=== PATIENT | male | born 1965 | race Caucasian/White ===

== ENCOUNTER 2016-12-05 08:27 | Inpatient (IN) | payer OTHER ==
[2016-12-05 08:33] VITALS: BMI 31.6
[2016-12-05] MEDS ORDERED: NITRO-BID OINT 2% Multi-Dose tube TD ONE (08:59)
[2016-12-05] MEDS ORDERED: MORPHINE SULFATE INJ 4 MG IVP ONE ×2 (08:59→13:06)
--- NOTE | 2016-12-05 09:02 | DR.GENAD ---
HPI - PCP Primary Care Physician: GRANT VÁSQUEZ - Complaint/Symptoms Chief Complaint Doctors Comments: Chest pain( midsternal) Chief Complaint:: BAD HEADACHE, N/V, CHEST PAIN SINCE YESTERDAY MORNING. - Nurses notes reviewed Nurses Notes Review: Yes - Source History Provided: Patient - Mode of Arrival Mode of Arrival: Ambulatory - Timing Onset of Chief Complaint: 12/04/16 Came on: Gradually - Duration Duration: Constant How lon Duration: Hours - Location Location: midsternal - Severity Severity: Severe - Associated Signs and Symptoms Associated Signs and Symptoms: nausea and vomiting PMH - PMH Past Medical History: Yes Past Medical History: Hypertension Past Medical History Comment: AAA, T-AROTIC DIC Past Surgical History: Yes Surgical History: AAA Repair, Appendectomy, CABG/Valve Surgery, Ortho Surgery Past Surgical History Comment: HERNIA REPAIR - Family History History of Family Medical Conditions: Yes Family Medical History: Heart Failure, Hypertension - Social History Does patient currently use any type of tobacco product: Yes Have you used tobacco products in the last 12 months: Yes Type of Tobacco Use: Cigarettes Does any household member use tobacco: No Alcohol Use: None Do you use any recreational Drugs:: No Lives With: Family Lives Where: Home - infectious screening In the last 2 months have you had wt loss of >10#?: NO Have you had fever, night sweats or hemotysis?: No Have you traveled outside the country in the last 6 months?: No Isolation: Standard ROS - Review of Systems Constitutional: No Symptoms Reported Eyes: No Symptoms Reported ENTM: No Symptoms Reported Respiratoy: No Symptoms Reported Cardiovascular: Chest Pain Gastrointestinal/Abdominal: Vomiting Genitourinary: No Symptoms Reported Neurological: No Symptoms Reported Musculoskeletal: No Symptoms Reported Integumentary: No Symptoms Reported Hematologic/Lymphatic: No Symptoms Reported Endocrine: No Symptoms Reported Psychiatric: No Symptoms Reported All Other Systems: Reviewed and Negative PE - Vital Signs Vitals: Temperature 98.8 F Pulse Rate [Right Brachial] 66 Pulse Rate 92 Respiratory Rate 17 Blood Pressure [Right Arm] 148/88 Blood Pressure 223/150 O2 Sat by Pulse Oximetry 96 - General Limitations: No Limitations General Appearance: Alert, In No Apparent Distress - Head Head Exam: Normal Inspection - Eyes Eye exam: Normal Appearance - ENT Nose Exam: Normal Nose Exam Mouth Exam: Normal Inspection Throat Exam: Normal Inspection - Neck Neck Exam: Normal Inspection - Chest Chest Inspection: Normal Inspection - Respiratory Respiratory Exam: Normal Lung Sounds Bilat Respiratory Exam: Bilateral Clear to Auscultation - Cardiovascular Cardiovascular Exam: Regular Rate, Normal Rhythm, Normal Heart Sounds - Abdominal Exam Abdominal Exam: Normal Inspection, Normal Bowel Sounds, Soft - Extremities Extremities Exam: Normal Inspection - Back Back Exam: Normal Inspection - Neurologic Neurological Exam: Alert, Oriented X3, CN II-XII Intact - Psychiatric Psychiatric Exam: Normal Affect - Skin Skin Exam: Warm, Dry, Intact, Normal Color ROR - Labs Reviewed Result Diagrams: 12/05/16 08:46 12/05/16 08:46 Laboratory: WBC 9.7 X10^3/uL (3.6-10.0) 12/05/16 08:46 RBC 6.09 X10^6/uL (4.7-6.0) H 12/05/16 08:46 Hgb 16.8 g/dL (13.5-18.0) 12/05/16 08:46 Hct 47.9 % (42.0-54.0) 12/05/16 08:46 MCV 78.6 fL (80.0-100.0) L 12/05/16 08:46 MCH 27.6 pg (27.0-34.0) 12/05/16 08:46 MCHC 35.2 g/dL (33.0-35.0) H 12/05/16 08:46 RDW 15.5 % (11.6-16.5) 12/05/16 08:46 Plt Count 133 X10^3/uL (150.0-450.0) L 12/05/16 08:46 MPV 8.1 fL (7.4-11.0) 12/05/16 08:46 Neut % 69.6 % (42.0-75.0) 12/05/16 08:46 Lymph % 18.6 % (21.0-51.0) L 12/05/16 08:46 [place] % 8.9 % (0.0-13.0) 12/05/16 08:46 Eos % 1.8 % (0.9-2.9) 12/05/16 08:46 Baso % 1.1 % (0.2-1.0) H 12/05/16 08:46 Neut # 6.7 x10^3/uL (2.2-4.8) H 12/05/16 08:46 Lymph # 1.8 X10^3/uL (1.3-2.9) 12/05/16 08:46 [place] # 0.9 x10^3/uL (0.3-0.8) H 12/05/16 08:46 Eos # 0.2 x10^3/uL (0.0-0.2) 12/05/16 08:46 Baso # 0.1 X10^3/uL (0.0-0.1) 12/05/16 08:46 Absolute Nucleated RBC 0.4 /100WBC 12/05/16 08:46 Sodium 141 mmol/L (136-145) 12/05/16 08:46 Corrected Sodium TNP 12/05/16 08:46 Potassium 3.7 mmol/L (3.5-5.1) 12/05/16 08:46 Chloride 103 mmol/L (98-107) 12/05/16 08:46 Carbon Dioxide 28.1 mmol/L (21-32) 12/05/16 08:46 BUN 14 mg/dL (7-18) 12/05/16 08:46 Creatinine 1.51 mg/dL (0.70-1.30) H 12/05/16 08:46 Est GFR (MDRD) Af Amer > 60 (>60) 12/05/16 08:46 Est GFR (MDRD) Non-Af 52 (>60) L 12/05/16 08:46 Glucose 98 mg/dL (65-99) 12/05/16 08:46 Calcium 9.1 mg/dL (8.5-10.1) 12/05/16 08:46 Corrected Calcium TNP 12/05/16 08:46 Total Bilirubin 1.00 mg/dL (0.2-1.0) 12/05/16 08:46 AST 37 Units/L (15-37) 12/05/16 08:46 ALT 57 Units/L (12-78) 12/05/16 08:46 Alkaline Phosphatase 70 Units/L (46-116) 12/05/16 08:46 Creatine Kinase 42 Units/L (39-308) 12/05/16 08:46 CK-MB (CK-2) < 1.0 ng/mL (0-4.0) 12/05/16 08:46 CK/CKMB % Calc 2.4 % (<4) 12/05/16 08:46 Troponin I < 0.02 ng/mL (0-1.5) 12/05/16 08:46 B-Natriuretic Peptide 98.3 pg/mL (0-79) H 12/05/16 08:46 Total Protein 8.3 g/dL (6.4-8.2) H 12/05/16 08:46 Albumin 3.6 g/dL (3.4-5.0) 12/05/16 08:46 Globulin 4.7 g/dL (2.5-4.5) H 12/05/16 08:46 Albumin/Globulin Ratio 0.8 Ratio (1.1-2.1) L 12/05/16 08:46 - Discharge Plan Disposition: ADMITTED INPATIENT Condition: Fair - Follow ups/Referrals Follow ups/Referrals: GRANT VÁSQUEZ [Primary Care Provider] - 3 days - Instructions
[2016-12-05] MEDS ORDERED: MORPHINE SULFATE INJ 4 MG ONE ×2 (09:03→13:01)
[2016-12-05 09:04] LABS: BASOPHILS # (AUTO) 0.1 X10^3/uL (0.0-0.1); BASOPHILS % (AUTO) 1.1 % (0.2-1.0); EOSINOPHILS # (AUTO) 0.2 x10^3/uL (0.0-0.2); EOSINOPHILS % (AUTO) 1.8 % (0.9-2.9); HEMATOCRIT 47.9 % (42.0-54.0); HEMOGLOBIN 16.8 g/dL (13.5-18.0); LYMPHOCYTES # (AUTO) 1.8 X10^3/uL (1.3-2.9); LYMPHOCYTES % (AUTO) 18.6 % (21.0-51.0); MEAN CORPUSCULAR HEMOGLOBIN 27.6 pg (27.0-34.0); MEAN CORPUSCULAR HGB CONC 35.2 g/dL (33.0-35.0); MEAN CORPUSCULAR VOLUME 78.6 fL (80.0-100.0); MEAN PLATELET VOLUME 8.1 fL (7.4-11.0); MONOCYTES # (AUTO) 0.9 x10^3/uL (0.3-0.8); MONOCYTES % (AUTO) 8.9 % (0.0-13.0); NEUTROPHILS # (AUTO) 6.7 x10^3/uL (2.2-4.8); NEUTROPHILS % (AUTO) 69.6 % (42.0-75.0); PLATELET COUNT 133 X10^3/uL (150.0-450.0); RED BLOOD COUNT 6.09 X10^6/uL (4.7-6.0); RED CELL DISTRIBUTION WIDTH 15.5 % (11.6-16.5); WHITE BLOOD COUNT 9.7 X10^3/uL (3.6-10.0)
[2016-12-05] MEDS: NITROSTAT SL PRN ×2 (09:08→09:14)
[2016-12-05 09:16] LABS: BLOOD UREA NITROGEN 14 mg/dL (7-18); CALCIUM 9.1 mg/dL (8.5-10.1); CARBON DIOXIDE 28.1 mmol/L (21-32); CHLORIDE 103 mmol/L (98-107); CREATININE 1.51 mg/dL (0.70-1.30); GLUCOSE 98 mg/dL (65-99); SODIUM 141 mmol/L (136-145); TROPONIN I < 0.02 ng/mL (0-1.5); eGFR BLACK RACES > 60 (>60); eGFR NON BLACK RACES 52 (>60)
[2016-12-05 09:20] LABS: ALANINE AMINOTRANSFERASE 57 Units/L (12-78); ALBUMIN 3.6 g/dL (3.4-5.0); ALKALINE PHOSPHATASE 70 Units/L (46-116); ASPARTATE AMINO TRANSFERASE 37 Units/L (15-37); CKMB % 2.4 % (<4); CREATINE KINASE 42 Units/L (39-308); CREATINE KINASE MB < 1.0 ng/mL (0-4.0); TOTAL PROTEIN 8.3 g/dL (6.4-8.2)
[2016-12-05] MEDS ORDERED: NITRO-BID OINT 2% Multi-Dose tube ONE (09:20)
[2016-12-05 09:21] LABS: B-TYPE NATRIURETIC PEPTIDE 98.3 pg/mL (0-79)
--- NOTE | 2016-12-05 09:43 | RAD ---
HISTORY: Chest pain Study: Chest one view Comparison: None Findings: The patient is status post median sternotomy and CABG. The heart is within normal limits in size. No congestive heart failure is noted. The aortic arch appears dilated. This could be better evaluated with chest CT with contrast. The lungs are hyperinflated. Emphysematous changes are present in the u pper lobes. Interstitial lung changes are present in the lower lobes. IMPRESSION: Dilated aortic arch possibly aneurysmal. Further evaluation with chest CT with contrast is recommend ed particularly if the patient is having chest pain. Emphysematous COPD with interstitial lung disease Reported By:
[2016-12-05] MEDS ORDERED: ZOFRAN INJ 4 MG VIAL IVP ONE (09:57)
[2016-12-05] MEDS ORDERED: NORMODYNE INJ 20 MG VIAL ONE ×2 (10:00→10:34)
[2016-12-05] MEDS ORDERED: NORMODYNE INJ 20 MG VIAL IVP ONE ×3 (10:00→13:02)
[2016-12-05] MEDS ORDERED: ZOFRAN INJ 4 MG VIAL ONE (10:00)
[2016-12-05] MEDS ORDERED: NORMODYNE INJ 100 MG VIAL IVP ONE (10:24)
[2016-12-05] MEDS ORDERED: NS 100 ML IV 100 ML IV ONE (11:05)
--- NOTE | 2016-12-05 12:24 | CT ---
HISTORY: History of thoracic aneurysm repair, abdominal aortic aneurysm, chest pain, vomiting Study: CT chest abdomen and pelvis with contrast Comparison: Prior CT report from 11/12/2016 was reviewed Technique: Multiple axial images of the chest, abdomen, and pelvis were obtained after the administr ation of IV contrast. Dose reduction techniques including Automated Exposure Control (AEC) and adju stment of mA and kV were utilized. CT chest findings: Sternotomy changes are noted. There are postsurgical changes of the ascending aorta with a single ve ssel arising from the ascending portion that gives rise to the brachiocephalic, bilateral common car otid arteries, and left subclavian artery. There is aneurysmal dilation of the aortic arch and desce nding thoracic aorta up to 5 cm with a type B dissection present. There are 2 patent channels within the descending thoracic aorta, with the smaller channel being anterior. The posterior channel as la rger with eccentric mural thrombus present. Chronic emphysematous changes are present in the lungs. No acute infiltrate. No pneumothorax or pleu ral effusion. Normal-sized heart. No pericardial effusion. The airways are clear. CT abdomen and pelvis findings: The liver, pancreas, kidneys and adrenal glands are within normal limits. There is heterogeneous enh ancement of the spleen with focal areas of hypoattenuation at the upper pole. The gallbladder is unr emarkable. No calcified gallstones are seen. No renal calculi or obstructive uropathy. Above-described type B dissection is seen in the upper abdomen. There is a stent noted within the sm aller anterior lumen. This smaller lumen feeds the SMA and celiac trunk although this stent appears to cover the origin of the celiac trunk. There are 2 left renal arteries present and the smaller lum en also feeds the more anterior of the 2 renal arteries. The larger more posterior left renal artery and the single right renal artery are fed by the posterior lumen. The smaller lumen becomes slit-li ke inferiorly into the bifurcation and gives rise to the SANCHEZ. The dissection extends into the bifurc ation and into the left common iliac artery and there is a stent within the smaller anterior lumen o f the left common iliac artery and circumferential mural plaque seen within the larger more posterio r lumen that gives rise to the hypogastric artery. The left external iliac artery is tortuous but wi linda patent. The right external iliac artery and bilateral common femoral arteries appear normal. No free intraperitoneal air. No evidence of intestinal obstruction or inflammation. The appendix is not visualized. No free fluid identified. The soft tissues and osseous structures are unremarkable. No pathologically enlarged lymph nodes are identified. There is urinary bladder wall thickening seen. Along the right posterior bladder wall n ear the right UVJ there is a partially calcified mural nodule measuring up to 1 cm of uncertain etio logy. IMPRESSION CHEST: 1. 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 2. Chronic emphysematous changes. IMPRESSION ABDOMEN/PELVIS: 1. Postsurgical changes of the abdominal aorta and left common iliac artery related to the type B di ssection as detailed above. The smaller anterior channel is stented at the level of the celiac trunk and SMA and appears slit like below the level of the renal arteries and is also stented at the bifu rcation extending into the left common iliac artery. 2. 1 cm partially calcified mural nodule within the urinary bladder near the right UVJ. Cannot excl ude a bladder mass. Urologic followup is recommended. 3. Heterogeneous enhancement of the spleen that is likely related to contrast timing. Less likely wo uld be a splenic contusion or laceration, correlate clinically. Reported By:
[2016-12-05] MEDS ORDERED: NORMODYNE INJ 20 MG VIAL IV PRN (13:54)
[2016-12-05 14:44] LABS: CKMB % 2.8 % (<4); CREATINE KINASE 36 Units/L (39-308); CREATINE KINASE MB < 1.0 ng/mL (0-4.0); TROPONIN I < 0.02 ng/mL (0-1.5)
[2016-12-05] MEDS ORDERED: OXYCODONE HCL PO PRN (15:49)
[2016-12-05 20:22] LABS: CKMB % 2.4 % (<4); CREATINE KINASE 42 Units/L (39-308); CREATINE KINASE MB < 1.0 ng/mL (0-4.0); TROPONIN I < 0.02 ng/mL (0-1.5)
[2016-12-05] MEDS ORDERED: ZESTRIL TAB 20 MG ONE (21:52)
[2016-12-05] MEDS: ZESTRIL TAB 20 MG PO SCH (21:53)
[2016-12-05] MEDS: M.S. CONTIN 15 MG (EXTENDED RELEASE) PO SCH (21:53)
[2016-12-06 02:48] LABS: BASOPHILS # (AUTO) 0.1 X10^3/uL (0.0-0.1); BASOPHILS % (AUTO) 0.8 % (0.2-1.0); EOSINOPHILS # (AUTO) 0.3 x10^3/uL (0.0-0.2); EOSINOPHILS % (AUTO) 2.8 % (0.9-2.9); HEMATOCRIT 41.4 % (42.0-54.0); HEMOGLOBIN 14.3 g/dL (13.5-18.0); LYMPHOCYTES # (AUTO) 1.6 X10^3/uL (1.3-2.9); LYMPHOCYTES % (AUTO) 17.3 % (21.0-51.0); MEAN CORPUSCULAR HEMOGLOBIN 27.5 pg (27.0-34.0); MEAN CORPUSCULAR HGB CONC 34.4 g/dL (33.0-35.0); MEAN CORPUSCULAR VOLUME 79.8 fL (80.0-100.0); MEAN PLATELET VOLUME 8.3 fL (7.4-11.0); MONOCYTES # (AUTO) 0.9 x10^3/uL (0.3-0.8); NEUTROPHILS # (AUTO) 6.5 x10^3/uL (2.2-4.8); NEUTROPHILS % (AUTO) 69.1 % (42.0-75.0); PLATELET COUNT 113 X10^3/uL (150.0-450.0); RED BLOOD COUNT 5.19 X10^6/uL (4.7-6.0); RED CELL DISTRIBUTION WIDTH 15.5 % (11.6-16.5); WHITE BLOOD COUNT 9.4 X10^3/uL (3.6-10.0)
[2016-12-06 02:55] LABS: ALANINE AMINOTRANSFERASE 45 Units/L (12-78); ALBUMIN 3.1 g/dL (3.4-5.0); ALKALINE PHOSPHATASE 54 Units/L (46-116); ASPARTATE AMINO TRANSFERASE 25 Units/L (15-37); BLOOD UREA NITROGEN 22 mg/dL (7-18); CALCIUM 8.5 mg/dL (8.5-10.1); CARBON DIOXIDE 28.1 mmol/L (21-32); CHLORIDE 104 mmol/L (98-107); CHOL/HDL RATIO 5.1 (0.0-5.0); CHOLESTEROL 132 mg/dL (0-200); COR CA(FOR HYPOALB) 9.2 mg/dL (8.5-10.1); GLUCOSE 92 mg/dL (65-99); HDL CHOLESTEROL 26 mg/dL (40-60); SODIUM 141 mmol/L (136-145); TRIGLYCERIDES 106 mg/dL (0-150); eGFR BLACK RACES 48 (>60); eGFR NON BLACK RACES 40 (>60)
[2016-12-06 03:03] LABS: CKMB % 2.5 % (<4); CREATINE KINASE 40 Units/L (39-308); CREATINE KINASE MB < 1.0 ng/mL (0-4.0); TROPONIN I < 0.02 ng/mL (0-1.5)
[2016-12-06 08:31] LABS: BILIRUBIN,URINE NEGATIVE (NEGATIVE); BLOOD/HEMOGLOBIN,URINE NEGATIVE (NEGATIVE); GLUCOSE, URINE NEGATIVE (NEGATIVE); KETONES,URINE NEGATIVE (NEGATIVE); LEUKOCYTE ESTERASE ,URINE NEGATIVE (NEGATIVE); NITRITES,URINE NEGATIVE (NEGATIVE); PROTEIN,URINE 2+ (NEGATIVE); UROBILINOGEN,URINE NORMAL (NORMAL)
[2016-12-06 08:43] LABS: APPEARANCE,URINE CLEAR (CLEAR); BACTERIA,URINE TRACE /HPF (NEGATIVE); COLOR,URINE DARK YELLOW (YELLOW); HYALINE CASTS, URINE RARE /LPF (NEGATIVE); MUCUS,URINE FEW /HPF (NEGATIVE); RBC,URINE NONE SEEN /HPF (NEGATIVE); SQUAMOUS EPITHELIAL CELL,UR RARE /HPF (NEGATIVE)
[2016-12-06] MEDS ORDERED: ASPIRIN PO SCH (09:00)
[2016-12-06] MEDS ORDERED: ZESTRIL TAB 20 MG ONE (09:30)
[2016-12-06] MEDS: M.S. CONTIN 15 MG (EXTENDED RELEASE) PO SCH (09:32)
[2016-12-06] MEDS: ZESTRIL TAB 20 MG PO SCH (09:32)
[2016-12-06] MEDS ORDERED: ZOFRAN INJ 4 MG VIAL IVP PRN (09:34)
[2016-12-06 11:34] VITALS: BP 137/95
== END 2016-12-06 12:48 | disposition home or self-care (01) | DRG 313 ==
LOC: ER 08:50 → ICU 13:57
PROVIDERS: ADMIT Internal Medicine; ATTEND Internal Medicine
DX: R07.89 Other chest pain (principal); I16.0 Hypertensive urgency; R94.31 Abnormal electrocardiogram [ECG] [EKG]
CPT/HCPCS: 36415; 71010; 71260; 74177; 80053; 80061; 81001; 82550; 82553; 83880; 84484; 85025; 93005; 93010; 96365; 96374; 96375; 99284; A4216; A4222; J2270; J2405; J3490

== ENCOUNTER 2017-08-19 17:58 | Emergency (ER) | payer OTHER, MEDICAID ==
[2017-08-19 18:04] VITALS: BMI 29.4
[2017-08-19 18:43] LABS: BASOPHILS # (AUTO) 0.1 X10^3/uL (0.0-0.1); BASOPHILS % (AUTO) 0.9 % (0.2-1.0); EOSINOPHILS # (AUTO) 0.1 x10^3/uL (0.0-0.2); EOSINOPHILS % (AUTO) 1.2 % (0.9-2.9); HEMOGLOBIN 14.5 g/dL (13.5-18.0); LYMPHOCYTES # (AUTO) 1.6 X10^3/uL (1.3-2.9); LYMPHOCYTES % (AUTO) 15.8 % (21.0-51.0); MEAN CORPUSCULAR HEMOGLOBIN 28.5 pg (27.0-34.0); MEAN CORPUSCULAR HGB CONC 35.4 g/dL (33.0-35.0); MEAN CORPUSCULAR VOLUME 80.5 fL (80.0-100.0); MONOCYTES # (AUTO) 0.8 x10^3/uL (0.3-0.8); NEUTROPHILS # (AUTO) 7.5 x10^3/uL (2.2-4.8); NEUTROPHILS % (AUTO) 74.1 % (42.0-75.0); PLATELET COUNT 147 X10^3/uL (150.0-450.0); RED CELL DISTRIBUTION WIDTH 15.1 % (11.6-16.5); WHITE BLOOD COUNT 10.1 X10^3/uL (3.6-10.0)
[2017-08-19 18:58] LABS: BLOOD UREA NITROGEN 17 mg/dL (7-18); CALCIUM 8.5 mg/dL (8.5-10.1); CARBON DIOXIDE 25.9 mmol/L (21-32); CHLORIDE 103 mmol/L (98-107); COR NA(FOR HYPERGLY) 140 mmol/L (136-145); CREATININE 1.57 mg/dL (0.70-1.30); SODIUM 139 mmol/L (136-145); TROPONIN I < 0.02 ng/mL (0-1.5); eGFR BLACK RACES 60 (>60); eGFR NON BLACK RACES 50 (>60)
[2017-08-19 19:02] LABS: ALANINE AMINOTRANSFERASE 19 Units/L (12-78); ALBUMIN 3.1 g/dL (3.4-5.0); ALKALINE PHOSPHATASE 68 Units/L (46-116); ASPARTATE AMINO TRANSFERASE 14 Units/L (15-37); CKMB % 2.1 % (<4); COR CA(FOR HYPOALB) 9.2 mg/dL (8.5-10.1); CREATINE KINASE 47 Units/L (39-308); CREATINE KINASE MB < 1.0 ng/mL (0-4.0); MAGNESIUM 1.7 mg/dL (1.7-2.9); TOTAL PROTEIN 7.4 g/dL (6.4-8.2)
--- NOTE | 2017-08-19 20:25 | DR.GENAD ---
HPI - PCP Primary Care Physician: vásquez - Complaint/Symptoms Chief Complaint Doctors Comments: History as stated. Chief Complaint:: patient stated he started having chest pain 4 hours ago and hard to breath. stated he can not take nitro due to a active anyersum - Source History Provided: Patient - Mode of Arrival Mode of Arrival: Ambulatory - Timing Onset of Chief Complaint: 08/19/17 PMH - PMH Past Medical History: Yes Past Medical History: Hypertension Past Surgical History: Yes Surgical History: AAA Repair, Appendectomy, CABG/Valve Surgery, Ortho Surgery - Family History History of Family Medical Conditions: Yes Family Medical History: Heart Failure, Hypertension - Social History Does patient currently use any type of tobacco product: Yes Have you used tobacco products in the last 12 months: Yes Type of Tobacco Use: Cigarettes How many years tobacco product used: 41 Does any household member use tobacco: Yes Alcohol Use: None Do you use any recreational Drugs:: No Lives With: Family Lives Where: Home - infectious screening In the last 2 months have you had wt loss of >10#?: NO Have you had fever, night sweats or hemotysis?: No Have you traveled outside the country in the last 6 months?: No Isolation: Standard ROS - Review of Systems Eyes: No Symptoms Reported ENTM: No Symptoms Reported Respiratoy: No Symptoms Reported Cardiovascular: No Symptoms Reported Gastrointestinal/Abdominal: No Symptoms Reported Genitourinary: No Symptoms Reported Neurological: No Symptoms Reported Musculoskeletal: No Symptoms Reported Integumentary: No Symptoms Reported Hematologic/Lymphatic: No Symptoms Reported Endocrine: No Symptoms Reported Psychiatric: No Symptoms Reported All Other Systems: Reviewed and Negative PE - Vital Signs Vitals: Temperature 98.7 F Pulse Rate 61 Respiratory Rate 16 Blood Pressure [Right Arm] 137/95 Blood Pressure 159/93 O2 Sat by Pulse Oximetry 98 - General Limitations: No Limitations General Appearance: Alert, In No Apparent Distress - Head Head Exam: Normal Inspection, Atraumatic - Eyes Eye exam: Normal Appearance, PERRL, EOMI - ENT ENT Exam: Normal Exam External Ear Exam: Normal External Inspection TM/Canal Exam: Bilateral Normal Nose Exam: Normal Nose Exam, Sinus Tenderness Mouth Exam: Normal Inspection Throat Exam: Normal Inspection - Neck Neck Exam: Normal Inspection, Full ROM - Chest Chest Inspection: Normal Inspection - Respiratory Respiratory Exam: Normal Lung Sounds Bilat Respiratory Exam: Bilateral Clear to Auscultation - Cardiovascular Cardiovascular Exam: Regular Rate, Normal Rhythm - Abdominal Exam Abdominal Exam: Normal Inspection, Normal Bowel Sounds Abdominal Tenderness: negative: RUQ, RLQ, LUQ, LLQ, Epigastrium, Suprapubic, Diffuse, Mild, Moderate, Severe, Other - Extremities Extremities Exam: Normal Inspection, Full ROM - Back Back Exam: Normal Inspection, Full ROM - Neurologic Neurological Exam: Alert, Oriented X3, CN II-XII Intact - Psychiatric Psychiatric Exam: Normal Affect, Normal Mood - Skin Skin Exam: Warm, Dry, Intact MDM - Additional Information Findings: Reviewed previous chest CT:aortic dilatation 06/27/17,4.8cm;12/05/16, 6.1.cm Course - Reevaluation 1st: Improved - Consultation Called: 22:50 ([facility] agreed to accept for further evaluation -go through ED) Call Returned: 22:55 (Dr Kendrick accepted via ED) - Education/Counseling Educated On: Diagnosis, Prognosis ROR - Labs Reviewed Result Diagrams: 08/19/17 18:30 08/19/17 18:30 Laboratory: WBC 10.1 X10^3/uL (3.6-10.0) H 08/19/17 18:30 RBC 5.10 X10^6/uL (4.7-6.0) 08/19/17 18:30 Hgb 14.5 g/dL (13.5-18.0) 08/19/17 18:30 Hct 41.0 % (42.0-54.0) L 08/19/17 18:30 MCV 80.5 fL (80.0-100.0) 08/19/17 18:30 MCH 28.5 pg (27.0-34.0) 08/19/17 18:30 MCHC 35.4 g/dL (33.0-35.0) H 08/19/17 18:30 RDW 15.1 % (11.6-16.5) 08/19/17 18:30 Plt Count 147 X10^3/uL (150.0-450.0) L 08/19/17 18:30 MPV 8.0 fL (7.4-11.0) 08/19/17 18:30 Neut % 74.1 % (42.0-75.0) 08/19/17 18:30 Lymph % 15.8 % (21.0-51.0) L 08/19/17 18:30 [place] % 8.0 % (0.0-13.0) 08/19/17 18:30 Eos % 1.2 % (0.9-2.9) 08/19/17 18:30 Baso % 0.9 % (0.2-1.0) 08/19/17 18:30 Neut # 7.5 x10^3/uL (2.2-4.8) H 08/19/17 18:30 Lymph # 1.6 X10^3/uL (1.3-2.9) 08/19/17:30 [place] # 0.8 x10^3/uL (0.3-0.8) 08/19/17: Eos # 0.1 x10^3/uL (0.0-0.2) 08/19/17 Baso # 0.1 X10^3/uL (0.0-0.1) 08/19/17: Absolute Nucleated RBC 0.0 /100WBC 08/19/17 18:30 INR Target Range - 08/19/17 18:30 INR 1.02 (0.8-1.3) 08/19/17:30 PTT 28.5 SECONDS (22.9-36.5) 08/19/17: PTT Comment - 08/19/17 18:30 D-Dimer 2690 ng/mL (0-400) H* 08/19/17 18:30 Sodium 139 mmol/L (136-145) 08/19/17 18:30 Corrected Sodium 140 mmol/L (136-145) 08/19/17:30 Potassium 3.2 mmol/L (3.5-5.1) L 08/19/17:30 Chloride 103 mmol/L (98-107) 08/19/17:30 Carbon Dioxide 25.9 mmol/L (21-32) 08/19/17 18:30 BUN 17 mg/dL (7-18) 08/19/17 18:30 Creatinine 1.57 mg/dL (0.70-1.30) H 08/19/17 18:30 Est GFR (MDRD) Af Amer 60 (>60) 08/19/17 18:30 Est GFR (MDRD) Non-Af 50 (>60) L 08/19/17 18:30 Glucose 136 mg/dL (65-99) H 08/19/17 18:30 Calcium 8.5 mg/dL (8.5-10.1) 08/19/17 18:30 Corrected Calcium 9.2 mg/dL (8.5-10.1) 08/19/17 18:30 Magnesium 1.7 mg/dL (1.7-2.9) 08/19/17 18:30 Total Bilirubin 0.40 mg/dL (0.2-1.0) 08/19/17 18:30 AST 14 Units/L (15-37) L 08/19/17 18:30 ALT 19 Units/L (12-78) 08/19/17 18:30 Alkaline Phosphatase 68 Units/L (46-116) 08/19/17 18:30 Creatine Kinase 47 Units/L (39-308) 08/19/17 18:30 CK-MB (CK-2) < 1.0 ng/mL (0-4.0) 08/19/17 18:30 CK/CKMB % Calc 2.1 % (<4) 08/19/17 18:30 Troponin I < 0.02 ng/mL (0-1.5) 08/19/17 18:30 Total Protein 7.4 g/dL (6.4-8.2) 08/19/17 18:30 Albumin 3.1 g/dL (3.4-5.0) L 08/19/17 18:30 Globulin 4.3 g/dL (2.5-4.5) 08/19/17 18:30 Albumin/Globulin Ratio 0.7 Ratio (1.1-2.1) L 08/19/17 18:30 - XRAY XRAY Interpreted by: Radiologist (Chest: The cardiac silhouette is unremarkable. Aneurysmal dilatation of aortic arch appears unchanged given technique. Postsurgical changes status post median sternotomy. No obvious focal consolidation, pleural effusion,or pneumothorax. The bony thorax is unremarkable.) - Diagnosis Discharge Problem: Aortic aneurysmal dilatation Chest pain Qualifiers: Chest pain type: precordial pain Qualified Code(s): R07.2 - Precordial pain - Discharge Plan Condition: Stable - Follow ups/Referrals Follow ups/Referrals: GRANT VÁSQUEZ [Primary Care Provider] - 3 days - Instructions
[2017-08-19] MEDS ORDERED: K-LYTE EFFERVESCENT ONE (20:30)
[2017-08-19] MEDS ORDERED: K-LYTE EFFERVESCENT PO SCH (21:00)
--- NOTE | 2017-08-19 22:43 | RAD ---
HISTORY: Chest pain and shortness of breath. Study: Portable chest. Comparison: Chest x-ray dated December 05, 2016. Findings: The trachea is midline. The cardiac silhouette is unremarkable. Aneurysmal dilatation of aortic arch appears unchanged given technique. Postsurgical changes status post median sternotomy. No obvious fo mela consolidation, pleural effusion, or pneumothorax. The bony thorax is unremarkable. IMPRESSION: No acute cardiopulmonary disease. Reported By:
[2017-08-19 23:02] VITALS: BP 155/92
[2017-08-19] MEDS ORDERED: MORPHINE SULFATE INJ 4 MG IVP ONE (23:19)
[2017-08-19] MEDS ORDERED: MORPHINE SULFATE INJ 4 MG ONE (23:23)
== END 2017-08-19 23:28 | disposition short-term general hospital (02) ==
LOC: ER 18:26
DX: I71.9 Aortic aneurysm of unspecified site, without rupture (principal); R07.2 Precordial pain; R79.1 Abnormal coagulation profile
CPT/HCPCS: 36415; 71045; 71275; 80053; 82550; 82553; 83735; 84484; 85025; 85378; 85610; 85730; 93005; 93010; 96365; 96374; 99284; 99285; A4222; J2270